=== PATIENT | female | born 1970 | race Caucasian/White ===

== ENCOUNTER → 2018-02-18 | Outpatient (CLI) | payer BC | LOC: CARDREHAB 11:43 → CARDLAB 12:30 | DX: R07.9 Chest pain, unspecified (principal) ==

== ENCOUNTER → 2022-07-14 | Outpatient (CLI) | payer BC ==
[~2022-07-14] MED LIST: OMEPRAZOLE D/R20 MG PO
== END ==
LOC: RAD 19:18
DX: R00.2 Palpitations (principal)